=== PATIENT | female | born 1950 | race Caucasian/White ===

== ENCOUNTER 2017-01-01 15:07 | Inpatient (IN) | payer OTHER ==
[~2017-01-01] VITALS: Ht 170.2 cm; Wt 123.4 kg
--- NOTE | ~2017-01-01 | 2DMMODE ---
[facility] [address] [place] [address] 2 D/M-MODE ECHOCARDIOGRAM Name: MARLENI TINOCO S Room #: 219-P ADM IN M.R.#: [id number] Admission: 01/01/17 Attend Phys: George Huitron Discharge: Date of : 48 Date of Service: 01/02/17 1252 Report #: [id number] THIS REPORT FOR: //name// APPROVED REPORT Study performed: 01/02/2017 09:26:13 EXAM: Comprehensive 2D, Doppler, and color-flow Echocardiogram Patient Location: Echo lab Room #: 219 Status: routine Other Information Study Quality: Technically Limited Indications Dyspnea Chest Pain Hx HTN, HLD, CHF, SOA, Cardiomegaly 2D Dimensions RVDd: 33.18 mm LVEF(%): 53.67 (>50%) IVSd: 12.56 (7-11mm) LVOT Diam: 18.04 (18-24mm) LVDd: 38.83 mm PWd: 11.73 (7-11mm) Ascending Ao: 29.40 (22-36mm) LVDs: 28.26 (25-40mm) Aortic Root: 28.67 mm IVC: 2.30 mm Walters's LVEF: 53.67 % Volumes Left Atrial Volume (Systole) Single Plane 4CH: 62.33 mL Single Plane 2CH: 35.02 mL LA ESV Index: 24.00 mL/m2 Aortic Valve AoV Peak Gabriel.: 1.55 m/s AO Peak Gr.: 9.67 mmHg LVOT Max P.38 mmHg LVOT Max V: 1.16 m/s MATTHEW Vmax: 1.90 cm2 Mitral Valve E/A Ratio: 0.9 MV Decel. Time: 200.23 ms MV E Max Gabriel.: 0.98 m/s MV A Gabriel.: 1.15 m/s [facility] [place] [address] 2 D/M-MODE ECHOCARDIOGRAM Name: MARLENI TINOCO Room #: 219-P [facility] IN .R.#: [id number] Admission: 01/01/17 Attend Phys: George Huitron Discharge: Date of : 48 Date of Service: 01/02/17 1252 Report #: [id number] PHT: 58.07 ms IVRT: 101.50 ms Pulmonary Valve PV Peak Gabriel.: 1.42 m/s PV Peak Gr.: 8.09 mmHg Pulmonary Vein P Vein S: 0.79 m/s P Vein A: 0.39 m/s P Vein D: 0.51 m/s P Vein A Dur.: 124.6 msec P Vein S/D Ratio: 1.55 Tricuspid Valve TR Peak Gabriel.: 2.79 m/s RAP Estimate: 10.00 mmHg TR Peak Gr.: 31.00 mmHg PA Pressure: 41.00 mmHg Left Ventricle The left ventricle is normal size. There is normal LV segmental wall motion. There is normal left ventricular wall thickness. The left ventricular systolic function is normal. The left ventricular ejection fraction is within the normal range. LVEF is 60-65%. Right Ventricle The right ventricle is normal size. The right ventricle is mildly hypertrophied. The right ventricular systolic function is normal. Atria The left atrium size is normal. The right atrium size is normal. Aortic Valve The aortic valve is normal in structure. No aortic regurgitation is present. There is no aortic valvular stenosis. Mitral Valve The mitral valve is normal in structure. There is no mitral valve regurgitation noted. No evidence of mitral valve stenosis. Tricuspid Valve The tricuspid valve is normal in structure. There is trace tricuspid regurgitation. The right atrial pressure is estimated at 10 mmHg. There is moderate pulmonary hypertension with an estimated PAP of 41 mmHg. Pulmonic Valve [address] [address] 2 D/M-MODE ECHOCARDIOGRAM Name: MARLENI TINOCO Room #: 219-P [facility] IN .R.#: [id number] Admission: 01/01/17 Attend Phys: George Huitron Discharge: Date of : 48 Date of Service: 01/02/17 1252 Report #: [id number] The pulmonary valve is normal in structure. There is no pulmonic valvular regurgitation. Great Vessels The aortic root is normal in size. The ascending aorta is normal in size. IVC is dilated and collapses <50% with inspiration. Pericardium Cannot rule out trace pericardial effusion <Conclusion> The left ventricular systolic function is normal. There is normal LV segmental wall motion. LVEF is 60-65%. Structural valve disease was absent. No significant regurgitant or stenotic lesions There is moderate pulmonary hypertension with an estimated PAP of 40 mmHg. Cannot rule out trace pericardial effusion <ELECTRONICALLY SIGNED> By: Sathya Haile MD, FACC 01/02/17 1252 125 125 Sathya Haile MD, FACC /INF
--- NOTE | ~2017-01-01 | EKG ---
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 : 1950 Requested By: Chioma Urbano Order Number: [id number] MD: Jasvir Castellanos Measurements Intervals [address] Rate: 102 P: 56 CT: 149 QRS: 25 QRSD: 72 T: -27 QT: 361 QTc: 471 Interpretive Statements Sinus tachycardia Left atrial enlargement Borderline T abnormalities, diffuse leads No previous ECG available for comparison Electronically Signed On 01-01-2017 17:05:49 CDT by Jasvir Castellanos [email or web address] <ELECTRONICALLY SIGNED> By: Jasvir Castellanos MD 01/01/17 1705 D: [id number] Jasvir Castellanos MD /KATHY
[2017-01-01 15:07] VITALS: BP 154/67
[2017-01-01] MEDS ORDERED: ALBUTEROL2.5 MG/0.5 INH (15:12)
[2017-01-01] MEDS ORDERED: LASIX 20 MG TAB20 MG PO (15:12)
[2017-01-01 15:36] LABS: ABSOLUTE NEUTROPHILS 5.9 thou/uL (1.4-8.2); BASOPHILS 0.4 % (0.0-2.0); EOSINOPHILS 0.9 % (0.0-3.0); HEMATOCRIT 36.6 % (37.0-47.0); HEMOGLOBIN 12.7 gm/dL (12.0-15.0); LYMPHOCYTES 14.9 % (24.0-44.0); MCH 34.2 pg (26.0-34.0); MCHC 34.8 g/dL (28.0-37.0); MCV 98.3 fL (80.0-100.0); MONOCYTES 8.4 % (1.0-8.0); PLATELET COUNT 160 thou/uL (150-400); POLYS 75.4 % (36.0-66.0); RBC 3.72 mil/uL (4.20-5.00); RDW 12.6 % (10.5-14.5); WBC 7.8 thou/uL (4.0-11.0)
[2017-01-01 15:38] LABS: MANUAL DIFF NO
[2017-01-01 15:48] LABS: ANION GAP 8 mmol/L (7-16); BUN 20 mg/dL (7-18); CALCIUM 8.8 mg/dL (8.5-10.1); CHLORIDE 102 mmol/L (98-107); CO2 29 mmol/L (21-32); CREATININE 1.1 mg/dL (0.6-1.0); GLUCOSE 177 mg/dL (74-106); POTASSIUM 3.2 mmol/L (3.5-5.1); SODIUM 139 mmol/L (136-145)
[2017-01-01 15:59] LABS: ALBUMIN 3.7 g/dL (3.4-5.0); ALKALINE PHOSPHATASE 102 U/L (46-116); NT-PRO BRAIN NAT PEPTIDE 124 pg/mL (<300); SGOT 16 U/L (15-37); SGPT 25 U/L (30-65); TOTAL BILIRUBIN 0.5 mg/dL (<0.1-1.0); TOTAL PROTEIN 7.2 g/dL (6.4-8.2); TROPONIN-I < 0.04 ng/mL (<0.04-0.07)
[2017-01-01 17:05] LABS: ABG SAMPLE TYPE ARTERIAL; BE(vivo) 2.2 mmol/L (-2 to +3); HCO3 26.7 mmol/L (22.0-26.0); LACTATE 1.71 mmol/L (0.5-2.0); O2Hb 88.7 % (92.0-98.0); PCO2 40.8 mmHg (35.0-45.0); PO2 55.1 mmHg (80.0-100.0); STICK SITE R.RADIAL; pH 7.433 (7.360-7.450); sO2 89.6 % (92.0-98.0); tCO2 27.9 mmol/L (24.0-30.0)
[2017-01-01 17:44] VITALS: BP 140/69
[2017-01-01 18:11] VITALS: BP 145/84
[2017-01-01] MEDS ORDERED: LASIX 40 MG TAB40 M2 PO (20:06)
[2017-01-01] MEDS ORDERED: WELLBUTRIN XL150 MG PO (20:06)
[2017-01-01] MEDS ORDERED: LISINOPRIL20 MG PO (20:07)
[2017-01-01] MEDS ORDERED: OMEPRAZOLE40 MG PO (20:08)
[2017-01-01] MEDS ORDERED: ATORVASTATIN CA40 MG PO (20:09)
[2017-01-01] MEDS ORDERED: MINIPRESS2 MG PO (20:09)
[2017-01-01] MEDS ORDERED: TRAZODONE HCL100 MG PO (20:10)
[2017-01-01] MEDS ORDERED: ZOLOFT100 MG PO (20:33)
[2017-01-01] MEDS ORDERED: ALPRAZOLAM1 M1 PO (20:35)
[2017-01-01] MEDS ORDERED: ALPRAZOLAM 0.50.5 M1 PO (20:35)
[2017-01-01 20:57] VITALS: BP 142/70
[2017-01-02 00:53] VITALS: BP 125/55
[2017-01-02 07:06] LABS: ANION GAP 10 mmol/L (7-16); BUN 15 mg/dL (7-18); CHLORIDE 103 mmol/L (98-107); TROPONIN-I < 0.04 ng/mL (<0.04-0.07)
[2017-01-02 07:12] LABS: HEMATOCRIT 40.2 % (37.0-47.0); HEMOGLOBIN 13.9 gm/dL (12.0-15.0); MCH 33.7 pg (26.0-34.0); MCHC 34.6 g/dL (28.0-37.0); MCV 97.5 fL (80.0-100.0); PLATELET COUNT 191 thou/uL (150-400); RBC 4.13 mil/uL (4.20-5.00); RDW 12.6 % (10.5-14.5); WBC 9.8 thou/uL (4.0-11.0)
[2017-01-02 07:17] LABS: MANUAL DIFF YES
[2017-01-02 07:30] VITALS: BP 162/78
[2017-01-02 08:08] LABS: CALCIUM 8.7 mg/dL (8.5-10.1); CHOLESTEROL 146 mg/dL (<200); CO2 29 mmol/L (21-32); GLUCOSE 196 mg/dL (74-106); HDL CHOLESTEROL 74 mg/dL (>40); LDL CHOLESTEROL 59 mg/dL (<100); MAGNESIUM 2.1 mg/dL (1.8-2.4); POTASSIUM 4.2 mmol/L (3.5-5.1); SODIUM 142 mmol/L (136-145); TRIGLYCERIDE 69 mg/dL (<150); VLDL 14 mg/dL (<40)
[2017-01-02 08:35] LABS: ABSOLUTE NEUTROPHILS 8.4 thou/uL (1.4-8.2); ANISOCYTOSIS SLIGHT; TOTAL CELL COUNT 100
[2017-01-02 12:48] VITALS: BP 136/75
[2017-01-02 13:38] LABS: ABG COMMENT NO COMPLICATIONS.; ABG SAMPLE TYPE ARTERIAL; HCO3 25.5 mmol/L (22.0-26.0); LACTATE 3.35 mmol/L (0.5-2.0); O2Hb 92.7 % (92.0-98.0); PCO2 40.3 mmHg (35.0-45.0); PO2 66.7 mmHg (80.0-100.0); STICK SITE L.RADIAL; pH 7.419 (7.360-7.450); sO2 93.6 % (92.0-98.0); tCO2 26.7 mmol/L (24.0-30.0)
[2017-01-02 15:06] VITALS: BP 162/90
[2017-01-02 19:09] VITALS: BP 131/70
[2017-01-03 02:43] LABS: HEMATOCRIT 37.7 % (37.0-47.0); HEMOGLOBIN 12.8 gm/dL (12.0-15.0); MCH 33.3 pg (26.0-34.0); MCV 98.1 fL (80.0-100.0); RBC 3.84 mil/uL (4.20-5.00); RDW 12.7 % (10.5-14.5); WBC 15.3 thou/uL (4.0-11.0)
[2017-01-03 02:58] LABS: ALBUMIN 3.2 g/dL (3.4-5.0); CALCIUM 8.6 mg/dL (8.5-10.1)
[2017-01-03 03:14] VITALS: BP 112/64
[2017-01-03 06:12] LABS: GLYCOHEMOGLOBIN (HGB A1C) 5.7 % (4.8-5.6)
[2017-01-03 08:32] VITALS: BP 150/82
[2017-01-03 12:14] VITALS: BP 134/67
[2017-01-03 16:45] VITALS: BP 144/73
[2017-01-03 19:31] VITALS: BP 130/73
[2017-01-03 22:47] VITALS: BP 130/73
[2017-01-04 03:29] VITALS: BP 117/68
[2017-01-04 08:21] VITALS: BP 144/84
[2017-01-04] MEDS ORDERED: DOXYCYCLINE 10100 MG PO (09:12)
[2017-01-04] MEDS ORDERED: PREDNISONE 10 M10 MG PO (09:13)
[2017-01-04 13:52] VITALS: BP 144/84
== END 2017-01-04 14:42 | disposition home or self-care (01) | DRG 871 ==
LOC: ER 15:07 → EROBS 16:28 → 2N 16:28
PROVIDERS: Hospitalist; Internal Medicine Geriatric Medicine; Internal Medicine Pulmonary Disease; Physician Assistant
DX: A41.9 Sepsis, unspecified organism (principal); J96.02 Acute respiratory failure with hypercapnia; J18.9 Pneumonia, unspecified organism; J45.901 Unspecified asthma with (acute) exacerbation; Z68.41 Body mass index [BMI] 40.0-44.9, adult; I31.3 Pericardial effusion (noninflammatory); E78.5 Hyperlipidemia, unspecified; F43.10 Post-traumatic stress disorder, unspecified; F32.9 Major depressive disorder, single episode, unspecified; F41.9 Anxiety disorder, unspecified; E66.01 Morbid (severe) obesity due to excess calories; I50.9 Heart failure, unspecified; I11.0 Hypertensive heart disease with heart failure; G47.33 Obstructive sleep apnea (adult) (pediatric); I27.2 Other secondary pulmonary hypertension; I27.81 Cor pulmonale (chronic); Z90.49 Acquired absence of other specified parts of digestive tract; Z80.52 Family history of malignant neoplasm of bladder; Z87.891 Personal history of nicotine dependence; Z79.899 Other long term (current) drug therapy
CPT/HCPCS: 10081

== ENCOUNTER 2017-01-16 21:57 | Inpatient (IN) | payer OTHER ==
[~2017-01-16] VITALS: Ht 167.6 cm; Wt 125.2 kg
--- NOTE | ~2017-01-16 | 2DMMODE ---
[facility] [place] [address] 2 D/M-MODE ECHOCARDIOGRAM Name: ALEJANDRINAMARLENI S Room #: 204-P ADM IN M.R.#: [id number] Admission: 01/16/17 Attend Phys: George Huitron Discharge: Date of : 48 Date of Service: 01/17/17 1011 Report #: [id number] THIS REPORT FOR: //name// APPROVED REPORT Study performed: 01/17/2017 07:40:22 EXAM: Limited 2D, Doppler, and color-flow Echocardiogram Patient Location: Bedside Room #: 204 Status: stat Other Information Study Quality: Adequate Indications Limited echo for pericardial effusion. (Complete echo done 01/02/17) Aortic Valve AoV Peak Gabriel.: 1.56 m/s AO Peak Gr.: 9.77 mmHg Tricuspid Valve TR Peak Gabriel.: 2.60 m/s RAP Estimate: 15.00 mmHg TR Peak Gr.: 27.02 mmHg PA Pressure: 42.00 mmHg Left Ventricle The left ventricle is normal size. Left ventricular systolic function is normal. LVEF is 60-65%. This study is not technically sufficient to allow evaluation of the LV diastolic function due to tachycardia. Right Ventricle Right ventricle is not well visualized but appears normal in size and function. Aortic Valve The aortic valve is normal in structure. No aortic regurgitation is present. There is no aortic valvular stenosis. Mitral Valve The mitral valve is normal in structure. There is no mitral valve regurgitation noted. [facility] [address] [place] [address] 2 D/M-MODE ECHOCARDIOGRAM Name: MARLENI TINOCO Room #: 204-P [facility] IN .R.#: [id number] Admission: 01/16/17 Attend Phys: George Huitron Discharge: Date of : 48 Date of Service: 01/17/17 1011 Report #: [id number] Tricuspid Valve There is mild tricuspid regurgitation. The right atrial pressure is estimated at 15 mmHg. There is moderate pulmonary hypertension with an estimated PAP of 42mmHg. Great Vessels IVC is dilated and collapses <50% with inspiration. Pericardium A pericardial effusion is noted hemodynamically insignificant. <Conclusion> The left ventricle is normal size. LVEF is 60-65%. Right ventricle is not well visualized but appears normal in size and function. The aortic valve is normal in structure. The mitral valve is normal in structure. There is mild tricuspid regurgitation. The right atrial pressure is estimated at 15 mmHg. There is moderate pulmonary hypertension with an estimated PAP of 42mmHg. <ELECTRONICALLY SIGNED> By: Josesito Perdomo MD 01/17/17 1011 1011 1011 Josesito Perdomo MD /INF
--- NOTE | ~2017-01-16 | EKG ---
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 : 1950 Requested By: Vaughn Vivas Order Number: [id number] MD: Sathya Haile Measurements Intervals [place] Rate: 119 P: 47 OR: 117 QRS: 33 QRSD: 87 T: -83 QT: 315 QTc: 444 Interpretive Statements Sinus tachycardia Nonspecific ST and T wave abnormality Compared to ECG 01/01/2017 15:12:40 No significant changes Electronically Signed On 01-17-2017 17:11:06 CDT by Sathya Haile [email or web address] <ELECTRONICALLY SIGNED> By: Sathya Haile MD, [facility] 01/17/17 1711 99 99 Sathya Haile MD, [facility] /EPI
--- NOTE | ~2017-01-16 | HC ---
[facility] [place] [address] CONSULTATION Name: MARLENI TINOCO Room #: 426-P [facility] IN M.R.#: [id number] Admission: 01/16/17 Attend Phys: George Guerin Discharge: Date of : 48 Report #: [id number] THIS REPORT FOR: //name// CC: LA [employer] DATE OF SERVICE: 01/17/2017 DATE OF SERVICE: 01/17/2017 INDICATION: Chest pain/pericardial effusion. HISTORY OF PRESENT ILLNESS: This is a 66-year-old female presenting with acute onset of left-sided chest pain. The patient had been admitted several weeks ago for shortness of breath, diagnosed with upper respiratory infection. She reportedly had a history of asthma and echo revealed normal LV systolic function and trace pericardial effusion. The patient was managed with antibiotics, steroids and inhalers. According to the patient, her symptom of dyspnea with mild levels of physical exertion persisted. Yesterday afternoon, she developed a sharp pain in the left lateral chest area ____ inspiration. The patient presented to the ER for an evaluation. A CT scan was negative for PE, but revealed a large pericardial effusion. The patient reports having intermittent chills, but denies any history of fevers, cough, nausea or diarrhea. PAST MEDICAL HISTORY: Hypertension, hypercholesterolemia, GERD, depression, obstructive sleep apnea and questionable asthma. Echo from 2 weeks ago reveals normal LV systolic function, moderate pulmonary hypertension and trace pericardial effusion. ALLERGIES: None. MEDICATIONS: Include furosemide 40 mg for edema, Wellbutrin once daily, lisinopril 20 mg daily, omeprazole 1 tablet a day, Lipitor 20 mg daily, prazosin 2 mg at night, trazodone, sertraline, albuterol inhaler. SOCIAL HISTORY: Former tobacco smoker. FAMILY HISTORY: Negative for premature CAD. REVIEW OF SYSTEMS: A full 10-point review of systems performed. Only the pertinent positives and negatives are described in the HPI. PHYSICAL EXAMINATION: VITAL SIGNS: Blood pressure is 130/70, heart rate is 80 beats per minute. GENERAL APPEARANCE: An overweight female in no acute respiratory distress. [facility] [address] [place] [address] CONSULTATION Name: MARLENI TINOCO Room #: 426-P [facility] IN M.R.#: [id number] Admission: 01/16/17 Attend Phys: George Guerin Discharge: Date of : 48 Report #: [id number] HEAD AND EYES: Normocephalic. Sclerae are anicteric. ENT: Oral mucosa moist. NECK: Supple. LUNGS: Slightly diminished breath sounds at the bases. CARDIAC: Distant heart sounds, S1, S2 positive. No pericardial rub. ABDOMEN: Protuberant, soft, nontender. EXTREMITIES: Trace bilateral lower extremity edema. No major joint deformities, full range of motion. NEUROLOGIC: Alert and oriented x 3. SKIN: Denies rashes. ECG reveals sinus rhythm, low voltage, nonspecific T-wave abnormalities. LABORATORY VALUES: White count 9.6, hemoglobin is 13.9. Sodium is 138, potassium is 4.0, chloride is 102, creatinine is 1.0, troponin is negative. ProBNP is 141. INR 1.0, CRP is elevated at 175.6, ESR is elevated at 83. TSH is within normal limits. ASSESSMENT AND PLAN: 1. Pericardial effusion, interestingly the echo from 2 weeks ago did not reveal any significant effusion. We will need a repeat echo to assess the size and evidence for tamponade. Laboratory abnormalities include elevated ESR and CRP. She should undergo an evaluation for an autoimmune disorder. Other considerations include viral, idiopathic, etc. May need drainage depending on echo results. 2. Chest pain, most likely attributed to pericarditis. Doubt that this is ischemic in origin. Although, she does have risk factors. 3. hypertension. The blood pressure is stable. For now, I would hold her antihypertensive medications. 4. Hypercholesterolemia, check lipid panel. 5. Depression/anxiety, continue with meds. 6. Obstructive sleep apnea, continue with CPAP at night. Thank you for allowing me to participate in the care of your patient. <ELECTRONICALLY SIGNED> By: Kev Mancera MD 01/18/17 [id number] Kev Mancera MD /nt
[~2017-01-16 21:57] MED LIST: ALBUTEROL2.5 MG/0.5 INH; ALPRAZOLAM 0.50.5 M1 PO; ALPRAZOLAM1 M1 PO; ATORVASTATIN CA40 MG PO; DOXYCYCLINE 10100 MG PO; LASIX 20 MG TAB20 MG PO; LASIX 40 MG TAB40 M2 PO; LISINOPRIL20 MG PO; MINIPRESS2 MG PO; OMEPRAZOLE40 MG PO; PREDNISONE 10 M10 MG PO; TRAZODONE HCL100 MG PO; WELLBUTRIN XL150 MG PO; ZOLOFT100 MG PO
[2017-01-16 21:59] VITALS: BP 181/107
[2017-01-16 22:24] LABS: ABSOLUTE NEUTROPHILS 7.2 thou/uL (1.4-8.2); BASOPHILS 0.6 % (0.0-2.0); EOSINOPHILS 1.6 % (0.0-3.0); HEMATOCRIT 40.2 % (37.0-47.0); HEMOGLOBIN 13.9 gm/dL (12.0-15.0); LYMPHOCYTES 15.3 % (24.0-44.0); MCH 33.7 pg (26.0-34.0); MCHC 34.5 g/dL (28.0-37.0); MCV 97.8 fL (80.0-100.0); MONOCYTES 8.2 % (1.0-8.0); PLATELET COUNT 246 thou/uL (150-400); POLYS 74.3 % (36.0-66.0); RBC 4.11 mil/uL (4.20-5.00); RDW 12.4 % (10.5-14.5); WBC 9.6 thou/uL (4.0-11.0)
[2017-01-16 22:25] LABS: MANUAL DIFF NO
[2017-01-16 22:28] LABS: ANION GAP 6 mmol/L (7-16); BUN 10 mg/dL (7-18); CALCIUM 9.5 mg/dL (8.5-10.1); CHLORIDE 102 mmol/L (98-107); CO2 30 mmol/L (21-32); GLUCOSE 108 mg/dL (74-106); SODIUM 138 mmol/L (136-145)
[2017-01-16 22:42] LABS: ALBUMIN 3.6 g/dL (3.4-5.0); ALKALINE PHOSPHATASE 137 U/L (46-116); CK-MB MASS < 0.5 ng/mL (<0.5-3.6); MAGNESIUM 2.1 mg/dL (1.8-2.4); NT-PRO BRAIN NAT PEPTIDE 141 pg/mL (<300); SGOT 47 U/L (15-37); SGPT 78 U/L (30-65); TOTAL PROTEIN 7.7 g/dL (6.4-8.2); TROPONIN-I < 0.04 ng/mL (<0.04-0.07)
[2017-01-16 22:43] LABS: APTT 30.9 Seconds (24.5-32.8); PROTIME 10.6 Seconds (9.3-11.4)
[2017-01-17] VITALS (8 sets, daily range): BP systolic 111–155; BP diastolic 67–84
[2017-01-17 23:13] LABS: URINE BILIRUBIN NEGATIVE (Negative); URINE BLOOD NEGATIVE (Negative); URINE COLOR YELLOW; URINE GLUCOSE-RANDOM* NEGATIVE (Negative); URINE KETONES NEGATIVE (Negative); URINE LEUKOCYTES-REFLEX NEGATIVE (Negative); URINE PROTEIN (DIPSTICK) NEGATIVE (Negative); URINE SPECIFIC GRAVITY 1.015 (1.003-1.035); URINE UROBILINOGEN 0.2 E.U./dl (0.2-1.0)
[2017-01-18 04:05] VITALS: BP 123/68
[2017-01-18 09:20] VITALS: BP 143/85
[2017-01-18 17:37] VITALS: BP 159/84
[2017-01-18 20:00] VITALS: BP 164/86
[2017-01-19 04:00] VITALS: BP 122/69
[2017-01-19 06:41] LABS: CALCIUM 9.4 mg/dL (8.5-10.1); CREATININE 0.9 mg/dL (0.6-1.0); POTASSIUM 4.7 mmol/L (3.5-5.1)
[2017-01-19 07:15] VITALS: BP 135/87
[2017-01-19 15:53] VITALS: BP 155/82
[2017-01-19 16:11] LABS: COXSACKIE A16 IGM Negative titer (Neg:<1:10); COXSACKIE A24 IGM Negative titer (Neg:<1:10); COXSACKIE A7 IGM Negative titer (Neg:<1:10); COXSACKIE A9 IGM Negative titer (Neg:<1:10)
[2017-01-19 20:01] VITALS: BP 175/93
[2017-01-20 04:35] VITALS: BP 154/98
[2017-01-20 08:24] VITALS: BP 142/69
[2017-01-20 19:28] VITALS: BP 149/75
[2017-01-21 03:22] VITALS: BP 118/62
[2017-01-21 07:33] VITALS: BP 139/85
[2017-01-21] MEDS ORDERED: PREDNISONE 20 M20 M1 PO (09:30)
[2017-01-21] MEDS ORDERED: COLCHICINE0.6 MG PO (09:30)
[2017-01-21] MEDS ORDERED: DUONEB 2.5-0.5 M3 ML INH (09:32)
[2017-01-21 11:04] VITALS: BP 139/85
== END 2017-01-21 12:30 | disposition home or self-care (01) | DRG 314 ==
LOC: ER 21:57 → EROBS 23:59 → 2N 23:59 → 4E 01-17 13:26
PROVIDERS: Emergency Medicine; Hospitalist; Internal Medicine Cardiovascular Disease
DX: I31.9 Disease of pericardium, unspecified (principal); J96.00 Acute respiratory failure, unspecified whether with hypoxia or hypercapnia; I31.3 Pericardial effusion (noninflammatory); I10 Essential (primary) hypertension; F43.10 Post-traumatic stress disorder, unspecified; R74.0 Nonspecific elevation of levels of transaminase and lactic acid dehydrogenase [LDH]; Z60.2 Problems related to living alone; E78.5 Hyperlipidemia, unspecified; F32.9 Major depressive disorder, single episode, unspecified; F41.9 Anxiety disorder, unspecified; J45.909 Unspecified asthma, uncomplicated; E78.00 Pure hypercholesterolemia, unspecified; K21.9 Gastro-esophageal reflux disease without esophagitis; G47.33 Obstructive sleep apnea (adult) (pediatric); I27.2 Other secondary pulmonary hypertension; Z87.891 Personal history of nicotine dependence; Z79.899 Other long term (current) drug therapy
CPT/HCPCS: 10783